=== PATIENT | female | born 1995 | race Caucasian/White ===

== ENCOUNTER → 2017-10-24 15:35 | Observation (INO) ==
--- NOTE | 2017-10-24 14:54 | OB/GYN Progress Note ---
Date of Encounter: 10/24/17 Time of Encounter: 14:52 - Assessment and Plan (1) 27 weeks gestation of Current Visit: Yes Status: Acute Patient 7 weeks and 6 days. Denies vaginal bleeding, cramping or discharge. We will obtain a urinalysis due to burning with urination. We will monitor the fetus externally at this time. (2) Decreased movement Current Visit: Yes Status: Acute tracing appropriate for gestational age, discharged home with when to return to triage and when to call provider precautions. Qualifiers: Fetus number: single or unspecified fetus Trimester: second trimester Qualified Code(s): O36.8120 - Decreased movements, second trimester, not applicable or unspecified Subjective - Subjective Interval history: 22-year-old female at 27 weeks 6 days presented to labor and delivery with concern for decreased movement. Patient states 4 days ago she felt that baby was not moving as well and did not feel and move for the past 3-4 days. Patient states she has been feeling baby move since 20 weeks. She states she was recently treated for a yeast infection and use nystatin cream. She states it does burn when it P's but denies any hematuria. Denies any fevers , chest pain or shortness of breath. Denies any dizziness or headaches. Denies any vaginal bleeding or cramping or loss of fluids. Patient states this has been normal with no complications. Anatomic ultrasound at 20 weeks was within normal limits. 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 Antepartum ROS: no loss of fluid, no vaginal bleeding, no movement normal , no contractions Objective - Exam FHR: auscultation normal FHR comments: baseline 135 Auscultation: bilateral: normal Abdomen: Present: normal appearance, soft, gravid
[2017-10-24 14:58] LABS: Bilirubin,Urine Negative (Negative); Blood,Urine Negative (Negative); Clarity,Urine Turbid (Clear); Color,Urine Yellow (Yellow); Glucose,Urine (UA) Normal (Normal); Ketones,Urine Negative (Negative); Leukocyte Esterase,Urine Large (Negative); Nitrite,Urine Negative (Negative); PH,Urine 7.5 pH Units (5.0-8.0); Protein,Urine Trace mg/dL (Neg-Trace); Specific Gravity,Urine 1.022 (1.010-1.025); Urobilinogen,Urine Normal (Normal)
[2017-10-24 15:00] LABS: Amphetamine Screen,Urine Negative ng/mL (Cutoff=1000); Bacteria,Urine Few per hpf (None-Few); Barbiturate Screen,Urine Negative ng/mL (Cutoff=200); Benzodiazepines Screen,Urine Negative ng/mL (Cutoff=200); Cannabinoid Screen,Urine Negative ng/mL (Cutoff = 50); Cocaine Screen,Urine Negative ng/mL (Cutoff= 300); Hyaline Casts,Urine None Seen per lpf (None-Few); Opiate Screen,Urine Negative ng/mL (Cutoff=300); Phencyclidine Screen,Urine Negative ng/mL (Cutoff=25); Squamous Epithelial Cell,Urine Many per lpf (None-Few); WBC,Urine 15-30 per hpf (0-3)
[2017-10-24 15:19] LABS: Amorphous Sediment,Urine Many (Few)
== END | disposition home or self-care (01) ==
LOC: 1NENULAB
PROVIDERS: ADMIT Obstetrics & Gynecology; ATTEND Obstetrics & Gynecology